=== PATIENT | female | born 1995 | race Caucasian/White ===

== ENCOUNTER 2017-02-24 10:56 | Emergency (ER) | payer OTHER ==
[2017-02-24 11:29] LABS: PH,URINE 6.5 PH (5.0-7.5)
[2017-02-24 11:33] LABS: HCG UR QUAL NEGATIVE; UA w/ MICROSCOPIC CHARGE YES
[2017-02-24 11:35] LABS: BILIRUBIN,URINE NEGATIVE (NEGATIVE)
[2017-02-24 11:56] LABS: UR CULTURE IF IND NOT INDICATED; WBC,URINE 0-3 /HPF (0-5)
--- NOTE | 2017-02-24 12:54 | ED Physician Documentation ---
PD HPI FEMALE - Stated complaint Stated Complaint: BACK PX - Chief complaint Chief Complaint: Back Pain - History obtained from History obtained from: Patient - History of Present Illness Timing - onset: How many days ago (few) Timing - duration: Days (few) Timing - details: Gradual onset, Intermittant Associated symptoms: Back pain, Pelvic pain, Vaginal bleeding (some menstrual spotting/bleeding, which she gets irregularly with her IUD.). No: Fever Contributing factors: IUD. No: Exposed to STD Similar symptoms before: Diagnosis (has had similar with UTIs with this in the past.) Recently seen: Not recently seen Review of Systems Constitutional: denies: Fever, Chills Nose: denies: Rhinorrhea / runny nose, Congestion Throat: denies: Sore throat Respiratory: denies: Cough GI: denies: Nausea, Diarrhea : reports: Frequency, Discharge, Vaginal bleeding (mild). denies: Dysuria Skin: denies: Rash, Lesions Musculoskeletal: reports: Back pain PD PAST MEDICAL HISTORY - Past Medical History Past Medical History: No - Present Medications Home Medications: Ambulatory Orders Medication Instructions Recorded Confirmed Cholecalciferol (Vitamin D3) 2,000 unit PO DAILY 02/24/17 02/24/17 [Vitamin D] Metronidazole [Flagyl] 500 mg PO BID #14 tablet 02/24/17 buPROPion [Wellbutrin Xl] 150 mg PO DAILY 02/24/17 02/24/17 traZODone [Desyrel] 50 mg PO ONCE 02/24/17 02/24/17 - Allergies Allergies/Adverse Reactions: Allergies Allergy/AdvReac Type Severity Reaction Status Date / Time No Known Drug Allergies Allergy Verified 02/24/17 11:07 - Social History Does the pt smoke?: No Smoking Status: Never smoker PD ED PE NORMAL - Vitals Vital signs reviewed: Yes - General General: Alert and oriented X 3, No acute distress, Well developed/nourished - HEENT HEENT: Moist mucous membranes, Pharynx benign - Neck Neck: Supple, no meningeal sign, No adenopathy - Cardiac Cardiac: RRR, No murmur - Respiratory Respiratory: Clear bilaterally - Abdomen Abdomen: Soft, Non tender - 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 vault with some watery discharge and dark brown menstrual blood. Minimal cervicitis. ) Results - Vitals Vitals: Vital Signs - 24 hr 02/24/17 02/24/17 11:03 14:39 Temperature 36.6 C 36.5 C Heart Rate 82 78 Respiratory 16 18 Rate Blood Pressure 113/76 110/74 O2 Saturation 100 100 Oxygen O2 Source Room air - Labs Labs: Microbiology 02/24/17 14:03 Wet Prep - Final Genital - Cervix Laboratory Tests 02/24/17 11:20 Urine Color YELLOW Urine Clarity CLEAR Urine pH 6.5 Ur Specific [place] 1.020 Urine Protein NEGATIVE Urine Glucose (UA) NEGATIVE Urine Ketones 15 H Urine Occult Blood TRACE-INTA Urine Nitrite NEGATIVE Urine Bilirubin NEGATIVE Urine Urobilinogen 0.2 (NORMAL) Ur Leukocyte Esterase TRACE H Urine RBC 0-5 Urine WBC 0-3 Ur Squamous Epith Cells MOD Squamous H Urine Bacteria Many H Ur Microscopic Review INDICATED Urine Culture Comments NOT INDICATED Urine HCG, Qual NEGATIVE PD MEDICAL DECISION MAKING - ED course Complexity details: reviewed results, considered differential (she had symptoms she thought would be UTI, but UA not impressive, so pelvic exam showing vaginitis. ), d/w patient Departure - Departure Disposition: Home, Self Care Clinical Impression: Bacterial vaginitis Back pain Qualifiers: Back pain location: low back pain Chronicity: acute Back pain laterality: bilateral Sciatica presence: without sciatica Qualified Code(s): M54.5 - Low back pain Condition: Stable Record reviewed to determine appropriate education?: Yes Instructions: ED Low Back Pain Injury, ED Vaginosis Bacterial Follow-Up: MADAY VELOZ [Primary Care Provider] - Prescriptions: Metronidazole [Flagyl] 500 mg PO BID #14 tablet Comments: The vaginal discharge suggests an infection (bacterial vaginosis). Treat it with metronidazole twice daily as directed. Tylenol or Ibuprofen as needed for pains. This can be causing the back pain as well. Otherwise could have muscular back pain as well, which would still be the Ibuprofen or Tylenol to treat it. Recheck if not better over the next few days. The cultures we did today will result in 2-3 days and we will call you if the treatment needs to be modified. Discharge Date/Time: 02/24/17 14:39
[2017-02-24] MEDS ORDERED: IBUPROFEN 400 MG TABLET PO STA (13:14)
[2017-02-24] MEDS ORDERED: IBUPROFEN 400 MG TABLET PO ONE (13:44)
[2017-02-24] MEDS ORDERED: metroNIDAZOLE 250 MG TABLET PO STA (14:01)
[2017-02-24] MEDS ORDERED: metroNIDAZOLE 250 MG TABLET PO ONE (14:13)
[2017-02-24 14:41] VITALS: BP 110/74
== END 2017-02-24 14:39 | disposition home or self-care (01) ==
LOC: ED 10:56
DX: N76.0 Acute vaginitis (principal); B96.89 Other specified bacterial agents as the cause of diseases classified elsewhere; M54.5 Low back pain; Z97.5 Presence of (intrauterine) contraceptive device
CPT/HCPCS: 81001; 81025; 87210; 87491; 87591; 99283; A9270; 81003; 87086

== ENCOUNTER 2018-02-15 03:52 | Emergency (ER) | payer OTHER ==
[2018-02-15 04:01] VITALS: BP 107/88
[2018-02-15] MEDS ORDERED: LIDOCAINE 1% 2 ML VIAL SUBQ ONE (04:11)
[2018-02-15] MEDS ORDERED: cefTRIAXone 1 GM VIAL IM STA (04:11)
[2018-02-15 04:14] LABS: LEUKOCYTE ESTERASE, URINE NEGATIVE (NEGATIVE); OCCULT BLOOD,URINE LARGE (NEGATIVE)
--- NOTE | 2018-02-15 04:14 | ED Physician Documentation ---
PD HPI FEMALE - Stated complaint Stated Complaint: FEMALE - Chief complaint Chief Complaint: Abd Pain - History obtained from History obtained from: Patient - History of Present Illness Timing - onset: Yesterday Timing - duration: Days (2) Timing - details: Gradual onset Pain level max: 8 Pain level max: 8 Associated symptoms: Back pain (low back), Dysuria, Urinary frequency, Hematuria. No: Fever, Pelvic pain, Vaginal pain, Vaginal bleeding, Vaginal discharge, Genital sore/lesion Similar symptoms before: Diagnosis (UTI) Recently seen: Clinic (Seen in clinic yesterday and started on Bactrim as well as Pyridium. States symptoms feel like they are worsening. Has not had any changes in sexual partners. No possibility of . Has not been exposed to any STDs.) Review of Systems Constitutional: denies: Fever, Chills Ears: denies: Ear pain Nose: denies: Rhinorrhea / runny nose, Congestion Respiratory: denies: Cough GI: denies: Vomiting, Diarrhea : reports: Dysuria, Frequency, Hesitancy Skin: denies: Rash Musculoskeletal: denies: Neck pain, Back pain Neurologic: denies: Headache PD PAST MEDICAL HISTORY - Past Medical History Past Medical History: Yes Other Past Medical History: UTI - Past Surgical History Past Surgical History: No HEENT: Tonsil/Adenoidectomy - Present Medications Home Medications: Ambulatory Orders Medication Instructions Recorded Confirmed Cholecalciferol (Vitamin D3) 2,000 unit PO DAILY 02/24/17 02/24/17 [Vitamin D] Metronidazole [Flagyl] 500 mg PO BID #14 tablet 02/24/17 buPROPion [Wellbutrin Xl] 150 mg PO DAILY 02/24/17 02/24/17 traZODone [Desyrel] 50 mg PO ONCE 02/24/17 02/24/17 Cephalexin [Keflex] 500 mg PO Q6H #20 capsule 02/15/18 - Allergies Allergies/Adverse Reactions: Allergies Allergy/AdvReac Type Severity Reaction Status Date / Time No Known Drug Allergies Allergy Verified 02/24/17 11:07 - Social History Does the pt smoke?: No Smoking Status: Never smoker Does the pt drink ETOH?: Yes Does the pt have substance abuse?: No - Immunizations Immunizations are current?: Yes - POLST Patient has POLST: No PD ED PE NORMAL - Vitals Vital signs reviewed: Yes - General General: Alert and oriented X 3, No acute distress - HEENT HEENT: Moist mucous membranes - Neck Neck: Supple, no meningeal sign - Cardiac Cardiac: RRR, Strong equal pulses - Respiratory Respiratory: No respiratory distress, Clear bilaterally - Abdomen Abdomen: Soft, Non tender, Non distended - Back Back: No CVA TTP, No spinal TTP - Derm Derm: Warm and dry - Extremities Extremities: No edema - Neuro Neuro: Alert and oriented X 3 - Psych Psych: Normal mood, Normal affect Results - Vitals Vitals: Vital Signs - 24 hr 02/15/18 03:55 Temperature 37.5 C Heart Rate 106 H Respiratory 17 Rate Blood Pressure 107/88 H O2 Saturation 98 Oxygen O2 Source Room air PD MEDICAL DECISION MAKING - ED course Complexity details: reviewed results, re-evaluated patient, considered differential, d/w patient ED course: Patient is a 23-year-old female who presents to the emergency department what appears to be a UTI. Does not appear to be clearing with the Bactrim, given Rocephin IM and will place on Keflex for home. No evidence of pyelonephritis or ureteral stone. We will have her follow-up with her PCP for further evaluation and care. She is well-appearing, nontoxic. Afebrile. Declines a pelvic examination at this time. Patient counseled regarding signs and symptoms for which I believe and urgent re-evaluation would be necessary. Patient with good understanding of and agreement to plan and is comfortable going home at this time This document was made in part using voice recognition software. While efforts are made to proofread this document, sound alike and grammatical errors may occur. - Sepsis Event Vital Signs: Vital Signs - 24 hr 02/15/18 03:55 Temperature 37.5 C Heart Rate 106 H Respiratory 17 Rate Blood Pressure 107/88 H O2 Saturation 98 Oxygen O2 Source Room air Departure - Departure Disposition: Home, Self Care Clinical Impression: UTI (urinary tract infection) Qualifiers: Urinary tract infection type: acute cystitis Hematuria presence: with hematuria Qualified Code(s): N30.01 - Acute cystitis with hematuria Condition: Good Instructions: ED UTI Cystitis Female Follow-Up: MADAY VELOZ [Primary Care Provider] - Within 3 Days (if not better) Prescriptions: Cephalexin [Keflex] 500 mg PO Q6H #20 capsule Comments: Take all antibiotics until gone. Return if you worsen. You can stop the Bactrim.
[2018-02-15] MEDS ORDERED: KETOROLAC 30 MG/ML VIAL IM STA (04:15)
[2018-02-15 04:27] LABS: CLARITY,URINE HAZY (CLEAR); ICTOTEST,URINE NEGATIVE
[2018-02-15 04:31] LABS: BACTERIA,URINE Few /HPF (None Seen); BILIRUBIN,URINE NEGATIVE (NEGATIVE); HCG UR QUAL NEGATIVE; RBC,URINE TNTC /HPF (0-5); SQUAMOUS EPITHELIAL CELL,UR MOD Squamous (<= Few)
[2018-02-15 04:32] LABS: MUCUS,URINE Moderate Strands
== END 2018-02-15 04:25 | disposition home or self-care (01) ==
LOC: ED 03:52
DX: N30.01 Acute cystitis with hematuria (principal)
CPT/HCPCS: 81001; 81003; 81025; 87086; 96372; 99283

== ENCOUNTER 2018-11-16 09:50 | Emergency (ER) | payer OTHER ==
[2018-11-16] MEDS ORDERED: SODIUM CHLORIDE 0.9% 1,000 ML IV ONE (11:17)
[2018-11-16] MEDS ORDERED: PROMETHAZINE INJ 25 MG in SODIUM CHLORIDE 0.9% 50 ML IV STA (11:17)
--- NOTE | 2018-11-16 12:29 | ED Physician Documentation ---
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 She is been trying some Zofran but has not been able to hold down. She is come to the emergency department for evaluation and treatment. Review of Systems Constitutional: denies: Fever Eyes: denies: Decreased vision Ears: denies: Ear pain Nose: denies: Rhinorrhea / runny nose, Congestion Throat: denies: Sore throat Cardiac: denies: Chest pain / pressure Respiratory: denies: Cough GI: reports: Abdominal Pain, Nausea, Vomiting, Diarrhea : denies: Dysuria, Frequency PD PAST MEDICAL HISTORY - Past Medical History Past Medical History: Yes Neuro: Migraines - Past Surgical History Past Surgical History: No HEENT: Tonsil/Adenoidectomy - Present Medications Home Medications: Ambulatory Orders Medication Instructions Recorded Confirmed Cholecalciferol (Vitamin D3) 2,000 unit PO DAILY 02/24/17 02/24/17 [Vitamin D] Metronidazole [Flagyl] 500 mg PO BID #14 tablet 02/24/17 buPROPion [Wellbutrin Xl] 150 mg PO DAILY 02/24/17 02/24/17 traZODone [Desyrel] 50 mg PO ONCE 02/24/17 02/24/17 Cephalexin [Keflex] 500 mg PO Q6H #20 capsule 02/15/18 Promethazine [Phenergan] 25 mg PO Q6H PRN #10 tab 11/16/18 - Allergies Allergies/Adverse Reactions: Allergies Allergy/AdvReac Type Severity Reaction Status Date / Time No Known Drug Allergies Allergy Verified 11/16/18 09:55 - Social History Does the pt smoke?: No Smoking Status: Never smoker Does the pt drink ETOH?: Yes Does the pt have substance abuse?: No - Immunizations Immunizations are current?: Yes - POLST Patient has POLST: No PD ED PE NORMAL - Vitals Vital signs reviewed: Yes (hypertensive ) - General General: Alert and oriented X 3, No acute distress, Well developed/nourished - HEENT HEENT: Atraumatic, PERRL, EOMI - Neck Neck: Supple, no meningeal sign - Cardiac Cardiac: RRR, No murmur - Respiratory Respiratory: No respiratory distress, Clear bilaterally - Abdomen Abdomen: Soft, Other (mild epigastric tenderness) - Back Back: No CVA TTP, No spinal TTP - Derm Derm: Normal color, Warm and dry, No rash - Extremities Extremities: No deformity, No edema - Neuro Neuro: Alert and oriented X 3, stripper preliminary 2-12 intact, No motor deficit, No sensory deficit, Normal speech Eye Opening: Spontaneous Motor: Obeys Commands Verbal: Oriented GCS Score: 15 - Psych Psych: Normal mood, Normal affect Results - Vitals Vitals: Vital Signs - 24 hr 11/16/18 11/16/18 09:51 14:01 Temperature 36.5 C 37.1 C Heart Rate 86 75 Respiratory 18 16 Rate Blood Pressure 140/93 H 112/74 O2 Saturation 97 100 Oxygen O2 Source Room air PD MEDICAL DECISION MAKING - ED course Complexity details: reviewed results, re-evaluated patient, considered differential, d/w patient ED course: 23 y/o female with gastroenteritis is administered IV saline and phenergan and she has better luck with the phenergan for the nausea. Departure - Departure Disposition: 01 Home, Self Care Clinical Impression: Gastroenteritis Condition: Stable Instructions: ED Gastroenteritis Vs Food Poison Follow-Up: JEANNIE Serrano [Provider Group] Prescriptions: Promethazine [Phenergan] 25 mg PO Q6H PRN #10 tab PRN Reason: Nausea / Vomiting Forms: Activity restrictions Discharge Date/Time: 11/16/18 14:03
[2018-11-16 14:03] VITALS: BP 112/74
== END 2018-11-16 14:03 | disposition home or self-care (01) ==
LOC: ED 09:50
DX: K52.9 Noninfective gastroenteritis and colitis, unspecified (principal)
CPT/HCPCS: 96365; 99284; J7040